=== PATIENT | male | born 1950 | race Two or more races ===

== ENCOUNTER 2016-08-10 03:58 | Emergency (ER) | payer MEDICARE ==
[~2016-08-10] VITALS: Ht 180.3 cm; Wt 161.0 kg
[~2016-08-10 03:58] MED LIST: DIABETIC MED; [UNRECOGNIZED DRUG - REMARK]; [UNRECOGNIZED DRUG - REMARK]
[2016-08-10 04:48] LABS: Basophils # (auto) 0.1 uL; Basophils % (auto) 1.1 % (0.0-2.0); Eosinophils # (auto) 0.2 uL; Eosinophils % (auto) 3.6 % (0.0-7.0); Hematocrit 44.4 % (41.0-53.0); Mean Corpuscular Hemoglobin 31.1 pg (28.0-32.0); Mean Corpuscular Hgb Conc. 33.8 g/dL (32.0-36.0); Mean Corpuscular Volume 92.1 fL (80.0-100.0); Mean Platelet Volume 9.1 fL (7.4-10.4); Monocytes # (auto) 0.7 uL; Monocytes % (auto) 12.2 % (0.0-12.0); Neutrophils # (auto) 2.6 uL; Neutrophils % (auto) 47.1 % (37.0-80.0); Platelet Count (auto) 264 10^3/uL (140-450); Red Cell Distribution Width 14.1 % (11.6-16.0); White Blood Cell 5.6 10^3/uL (4.4-10.8)
[2016-08-10 05:03] LABS: Albumin 3.6 g/dL (3.4-5.0); Anion Gap 9 (5-15); Aspartate Aminotransferase 16 U/L (15-37); BUN/Creatinine Ratio 14.7; Blood Urea Nitrogen 16 mg/dL (7-18); Calcium 8.3 mg/dL (8.5-10.1); Carbon Dioxide 24 mmol/L (21-32); Chloride 105 mmol/L (98-107); GFR African American 87 mL/min; GFR Non-African American 72 mL/min; Glucose 104 mg/dL (74-106); Magnesium 2.2 mg/dL (1.6-2.6); Potassium 4.2 mmol/L (3.5-5.1); Sodium 138 mmol/L (136-145)
[2016-08-10 05:04] LABS: INR 1.03 (0.9-1.15); Partial Thromboplastin Time 27.8 sec (22.64-33.71); Prothrombin Time 11.1 sec (9.37-12.3)
[2016-08-10 05:09] LABS: Alkaline Phosphatase 32 U/L (45-117); Bilirubin, Total 0.4 mg/dL (0.2-1.0); Total Protein 7.4 g/dL (6.4-8.2)
[2016-08-10 07:15] VITALS: BP 158/86
== END 2016-08-10 10:41 | disposition home or self-care (01) ==
LOC: ER 04:00
DX: M79.642 Pain in left hand (principal); F41.9 Anxiety disorder, unspecified; I10 Essential (primary) hypertension; R20.0 Anesthesia of skin
CPT/HCPCS: 36415; 70450; 80053; 83735; 84484; 85025; 85610; 85730; 93005

== ENCOUNTER 2023-07-26 10:17 | Emergency (ER) | payer OTHER ==
[~2023-07-26] VITALS: Ht 167.6 cm; Wt 145.9 kg
[~2023-07-26 10:17] MED LIST changes: +CLIN1CAP70 PO; +LEVO500T91 PO
[2023-07-26] MEDS: ADENOSINE 6 MG/2 ML INJ IV ONE ×4 (11:14→11:24)
[2023-07-26] MEDS: dilTIAZem 25 MG/5 ML VIAL IV ONE ×2 (11:15)
[2023-07-26] MEDS: MIDAZOLAM HCL 2MG/2ML 2ml VIAL (1mg/ml) IV ONE (11:15)
[2023-07-26 11:20] VITALS: PULSE 170; RESP 21; O2SAT 98
[2023-07-26] MEDS: SODIUM CHLORIDE 0.9% 1,000 ML IV ONE ×2 (11:24→14:15)
[2023-07-26] MEDS ORDERED: VANCOMYCIN PER PHARMACY 0 MG IV SCH (11:30)
[2023-07-26] MEDS: ONDANSETRON HCL 4 MG/2 ML VIAL IV ONE (11:30)
[2023-07-26] MEDS: amLODIPine BESYLATE 5 MG TAB PO ONE ×2 (11:45→12:32)
[2023-07-26 11:54] LABS: Hematocrit 52.2 % (41.0-53.0); Mean Corpuscular Hemoglobin 31.8 pg (28.0-32.0); Mean Corpuscular Hgb Conc. 32.5 g/dL (32.0-36.0); Mean Corpuscular Volume 97.7 fL (80.0-100.0); Red Blood Cells 5.34 10^6/uL (4.5-5.90); Red Cell Distribution Width 14.8 % (11.8-14.3); White Blood Cell 5.8 10^3/uL (4.4-10.8)
[2023-07-26 12:00] LABS: Base Excess -7.6 mmol/L (-2.0-2.0)
[2023-07-26 12:11] LABS: INR 1.12 (0.9-1.15); Partial Thromboplastin Time 33.6 SEC (24.5-34.5); Prothrombin Time 11.7 sec (9.3-11.8)
[2023-07-26 12:14] LABS: Band Neutrophils % (manual) 0; Basophils % (manual) 0 (0.0-2.0); Blast Cells 0; Metamyelocytes % 0; Myelocytes % 0; Promyelocytes % 0; Reactive Lymphocytes 0
[2023-07-26 12:32] LABS: Alanine Aminotransferase 13 U/L (7-40); Albumin 4.4 g/dL (3.2-4.8); Alkaline Phosphatase 78 U/L (46-116); Anion Gap 6 (5-15); Aspartate Aminotransferase 20 U/L (13-40); BUN/Creatinine Ratio 12.3 (10.0-20.0); Blood Urea Nitrogen 14 mg/dL (9-23); Calcium 9.1 mg/dL (8.7-10.4); Carbon Dioxide 20 mmol/L (20-30); Chloride 109 mmol/L (98-107); Creatine Kinase IFCC 69 U/L (46-171); Glucose 109 mg/dL (74-106); Potassium 4.8 mmol/L (3.5-5.1); Sodium 135 mmol/L (136-145)
[2023-07-26] MEDS: ALBUMIN 25% 100 ML IV ONE (12:32)
[2023-07-26] MEDS: ASPirin 81 mg TAB PO ONE (12:32)
[2023-07-26 12:33] LABS: Bilirubin, Total 0.5 mg/dL (0.2-1.0); Total Protein 7.8 g/dL (5.7-8.2)
[2023-07-26] MEDS: VANCOMYCIN 1GM/200ML 200 ML IV ONE (12:41)
[2023-07-26 13:29] LABS: Eosinophils % (manual) 1 (0-7); Lymphocytes % (manual) 16 (10.0-50.0); Monocytes % (manual) 28 (0-12); Platelet Estimate Adequate
[2023-07-26] MEDS ORDERED: HYDROcodone-ACET 5/325MG TAB PO PRN (14:15)
[2023-07-26] MEDS ORDERED: METOPROLOL TARTRATE 1MG/1ML-5ML VIAL IV PRN (14:15)
[2023-07-26] MEDS: CLINDAMYCIN HCL 150 MG CAP PO SCH (15:45)
[2023-07-26 17:10] VITALS: BP 127/64; PULSE 76; RESP 18; TEMP 97.7; O2SAT 98
[2023-07-26] MEDS ORDERED: VANCOMYCIN 1GM/200ML 200 ML IV SCH (21:00)
[2023-07-26] MEDS ORDERED: METOPROLOL TARTRATE 25 MG TAB PO SCH (22:00)
[2023-07-27] MEDS ORDERED: levoFLOXacin 500 MG TAB PO SCH (10:00)
== END 2023-07-26 17:00 | disposition short-term general hospital (02) ==
LOC: ER 10:17
DX: A41.9 Sepsis, unspecified organism (principal); I83.023 Varicose veins of left lower extremity with ulcer of ankle; L97.329 Non-pressure chronic ulcer of left ankle with unspecified severity; I47.10 Supraventricular tachycardia, unspecified; I95.9 Hypotension, unspecified; R60.0 Localized edema; I10 Essential (primary) hypertension; E11.9 Type 2 diabetes mellitus without complications
CPT/HCPCS: 36415; 71045; 80053; 80320; 82550; 83605; 83735; 83880; 84443; 84484; 85007; 85027; 85610; 85730; 87040; 87077; 87186; 87205; 93005; 93970; 96361; 96365; 96368; 96375; 99291; J0153; J3370; J7030; P9047

== ENCOUNTER 2025-02-08 02:39 | Inpatient (IN) | payer OTHER ==
[~2025-02-08] VITALS: Ht 180.3 cm; Wt 124.0 kg
[~2025-02-08 02:39] MED LIST changes: +FURO40TA4 PO; +POTA-180 PO; +SIMV20TA20 PO; +TAMS0.4C39 PO
--- NOTE | 2025-02-08 03:36 | ED.PDOC ---
History of Present Illness HPI Comments HPI: 74-year-old male who came to ER for body pains. Patient is a very poor informant. States he was apparently fine this morning until 7:00 p.m. when he developed generalized body pains. No fever noted. Initial Vitals BP:151/85 HR: 122 RR: 18 O2: 98% Temp: 98.6 Past Medical History: Hypertension, diabetes, dyslipidemia, SVTs Past Surgical History: Denies Social History: Denies ETOH, smoking, and drug use. MARY: HPI: Poor Historian. REVIEW OF SYSTEMS: CONSTITUTIONAL: Denies acute: fever, diaphoresis, chills, HEAD: Denies acute: headache, photophobia Eyes: Denies acute: Double vision, vision loss, eye pain, eye discharge. EARS: Denies acute: tinnitus, hearing loss, ear discharge, ear pain, THROAT: Denies acute: sore throat, swelling, difficulty swallowing , pain with swallowing, change in voice. NECK: Denies acute: neck pain, neck swelling, stiff neck. HEART: Denies acute : chest pain, palpitations, LUNGS: Denies acute: SOB, wheezing, cough, hemoptysis ABDOMEN: Denies acute: Nausea, Vomiting, diarrhea, melena , hematemesis, hematochezia SKIN: Denies acute: rash, redness, lesions, itchiness. EXTREMITIES: Denies acute: calf pain, numbness, tingling, weakness, Denies acute: Low back pain. Neuro: Denies acute: focal neurological deficit, motor or sensory focal neurological deficit, tremors, seizure like activity, confusion, dizziness, change in mental status, loss of bowel or bladder function, cauda equina like symptoms. : Denies acute: dysuria, hematuria, flank pain, increase in urinary frequency. PSYCH: Denies acute: hallucination, suicidal ideation, homicidal ideation. PHYSICAL EXAM: General: -----moderate---acute distress, awake and alert. Patient is diffusely tender anywhere I touch him. Head: normocephalic, atraumatic. Neck: supple, trachea is midline, no swelling. Throat: Normal phonation. Eyes:, no erythema, no purulent discharge, no proptosis, no icterus. Heart: regular tachycardic, no significant murmur appreciated. Lungs: no apparent respiratory distress, Able to speak in full sentences. No wheezing, no rhonchi, no crackles. No stridors Clear to auscultation bilaterally. Abdomen: Generalized tender to palpation, non distended, soft, no guarding, no rebound, + bowel sounds. Obese Neuro: Awake, Alert, oriented to name, self, situation, follows commands GCS=15. Speech is normal. Skin: no petechia, no purpura, no cyanosis, non-pale, not jaundice. Lower extremities: --2/4 bilateral- Pitting edema no deformity, no focal swelling, no calf TTP. Makes eye contact. moves all four extremities. Face: no apparent facial droop. Ambulating in the ED with a cane. No nuchal rigidity, Kernig's sign, Brudzinski's sign, no meningeal signs. ED COURSE: DISCLAIMER: This medical document was created using an electronic medical record system with voice recognition software and computerized dictation system. Although this document has been carefully reviewed, there might still be some phonetic and typographical errors. Occasional wrong-word or "sound-alike" substitutions may have occurred due to the inherent limitations of voice recognition software. These areas are purely typographical due to imperfections of the software programs and do not reflect any compromise in the patient's medical care. Please read the chart carefully and recognize, using context, where these substitutions have occurred. Chief Complaint: Body Pain Time Seen by MD: 03:35 Primary Care Provider: YSABEL CERON NAME Reviewed Notes: Nurses Notes Allergies: Coded Allergies: NO KNOWN ALLERGIES (Unverified , 10/23/11) Home Meds Active Scripts Clindamycin Hcl (Clindamycin Hcl) 300 Mg Cap, 1 CAP PO TID for 10 Days, #30 CAP Prov:KEYUR KOWALSKI MD 07/23/23 Levofloxacin Hemihydrate (LEVAQUIN 500 MG) 500 Mg Tab, 1 TAB PO DAILY for 10 Days, #10 TAB Prov:KEYUR KOWALSKI MD 07/23/23 Reported Medications [Diabetic Med] No Conflict Check 10/23/11 [Heidi Cholosterol] No Conflict Check 10/23/11 [Htn X 2] No Conflict Check 10/23/11 Information Source: Patient Mode of Arrival: Ambulatory Past Medical History PAST MEDICAL HISTORY: DM, High Lipids, HTN Past Medical History (Other): SVTs Surgical History: Denies all surgeries Family History Family History: Unknown Social History Smoker: Non-Smoker Alcohol: Denies ETOH Use Drugs: Denies Drug Use Lives In: Home Was a procedure done? Was a procedure done?: No EKG EKG : Pulse Rate (adult): 103 Cardiac Rhythm: ST Differential Dx Considerations may include: Anemia, electrolyte imbalance, urinary tract infection, cellulitis, sepsis, pneumonia Includes but not limited to thyroid disease, encephalopathy, electrolyte abnormality, sepsis, infection, intracranial pathology, drug adverse effects, arrhythmia, kidney insufficiency, ACS, CVA, malignancy, anemia X-Ray, Labs, Meds, VS Vital Signs Date Time Temp Pulse Resp B/P (MAP) Pulse Ox O2 Delivery O2 Flow Rate FiO2 02/08/25 03:36 103 02/08/25 02:43 98.6 122 18 151/85 98 98.6 Lab Test 02/08/25 05:13 02/08/25 03:44 02/08/25 03:21 Range/Units Troponin I High Sensitivity 16 12 </=54 ng/L Lactic Acid Level 2.0 0.4-2.0 mmol/L White Blood Count 11.7 H 4.4-10.8 10^3/uL Red Blood Count 5.09 4.5-5.90 10^6/uL Hemoglobin 16.0 13.5-17.5 g/dL Hematocrit 47.0 41.0-53.0 % Mean Corpuscular Volume 92.3 80.0-100.0 fL Mean Corpuscular Hemoglobin 31.4 28.0-32.0 pg Mean Corpuscular Hemoglobin Concent 34.1 32.0-36.0 g/dL Red Cell Distribution Width 15.4 H 11.8-14.3 % Platelet Count 188 140-450 10^3/uL Mean Platelet Volume 8.6 6.9-10.8 fL Neutrophils (%) (Auto) 87.2 H 37.0-80.0 % Lymphocytes (%) (Auto) 3.5 L 10.0-50.0 % Monocytes (%) (Auto) 8.6 0.0-12.0 % Eosinophils (%) (Auto) 0.1 0.0-7.0 % Basophils (%) (Auto) 0.6 0.0-2.0 % Neutrophils # (Auto) 10.2 H 1.6-8.6 10 ^3/uL Lymphocytes # (Auto) 0.4 0.4-5.4 10 ^3/uL Monocytes # (Auto) 1.0 0-1.3 10 ^3/uL Eosinophils # (Auto) 0 0-0.8 10 ^3/uL Basophils # (Auto) 0.1 0-0.2 10 ^3/uL Nucleated Red Blood Cells 0.0 % Erythrocyte Sedimentation Rate 14 0-20 mm/hr Sodium Level 138 136-145 mmol/L Potassium Level 4.5 3.5-5.1 mmol/L Chloride Level 103 98-107 mmol/L Carbon Dioxide Level 23 20-31 mmol/L Anion Gap 12 5-15 Blood Urea Nitrogen 13 9-23 mg/dL Creatinine 1.05 0.700-1.30 mg/dL Glomerular Filtration Rate Calc 74 >90 mL/min BUN/Creatinine Ratio 12.4 10.0-20.0 Serum Glucose 141 H 74-106 mg/dL Calcium Level 9.8 8.7-10.4 mg/dL Magnesium Level 1.8 1.6-2.6 mg/dL Total Bilirubin 1.7 H 0.2-1.0 mg/dL Aspartate Amino Transferase (AST) 28 13-40 U/L Alanine Aminotransferase (ALT) 20 7-40 U/L Alkaline Phosphatase 107 46-116 U/L C-Reactive Protein High Sensitivity 0.46 <1.0 mg/dL B-Type Natriuretic Peptide 385.93 0-100 pg/mL Total Protein 7.9 5.7-8.2 g/dL Albumin 4.4 3.2-4.8 g/dL Time of 1ST Reevaluation: 03:31 Reevaluation 1ST: Unchanged Patient Education/Counseling: Diagnosis, Treatment Family Education/Counseling: No Family Present Comments MDM: patient presented with the above HPI.--generalized body aches and altered mental status----workup was initiated. patient was found with the above mentioned diagnosis. the following medications were ordered: please refer to order lists of meds and tests obtained by myself Dr. Hawkins. Patient ED course and VS have been stabilized. Patient has been reassessed in the ED and remained in a stable condition. Pertinent incidental findings were discussed with the patient and/or family. Patient/family voices understanding and is agreeable with plan. Patient has been observed in the ED adequate length of time to insure improvement/stability. Escalation of care considered: Consideration of escalation to observation or admission Patient has chronic bilateral lower extremity cellulitis with tenderness to palpation worse on the left side. Antibiotics initiated. Patient is awaiting some type of procedure to repair his ulcers. Patient states that he is somewhat confused because he is in generalized body aches and pain that started earlier today with a unknown etiology. Although the workup is so far unrevealing, patient clinically looks like something concerning is going on. Patient was ADMITTED to the medicine team for further evaluation and treatment of their presentation. All the reports of any imaging studies that were ordered by myself were reviewed by myself. SEPSIS Sepsis Screen Date sepsis recognized/suspect: Feb 08, 2025 Time Sepsis recognized/suspect: 024 Recent Procedure: No On Antibiotic Therapy: No Respiratory Rate >20: No Heart Rate >90: Yes Temp<36 C (96.8 F) or >38.3 C: No SBP <90 or MAP <65 mmHG: No New Acute Mental Status Change: No Is the patient on CPAP, BIPAP,: No Physician Orders Production Team Member (02/08/25 ) Urinalysis (02/08/25 03:13) Troponin-I Hs (02/08/25 06:13) Blood Culture (02/08/25 04:08) Chest Portable (02/08/25 05:23) Clindamycin 900mg Iv (Cleocin Iv) (02/08/25 05:45) Vital Signs Date Time Temp Pulse Resp B/P (MAP) Pulse Ox O2 Delivery O2 Flow Rate FiO2 02/08/25 03:36 103 02/08/25 02:43 98.6 122 18 151/85 98 98.6 Laboratory Tests Test 02/08/25 03:21 02/08/25 03:44 White Blood Count 11.7 10^3/uL (4.4-10.8) H Lactic Acid Level 2.0 mmol/L (0.4-2.0) Departure 1 Departure Time of Disposition: 06:47 Impression: Primary Impression: Altered mental status Additional Impressions: Cellulitis, leg Generalized body aches Disposition: ADMITTED INPATIENT Admit to: [facility] Condition: Guarded Discharged With: Self Critical Care Note Critical Care Time?: Yes (35 min-critical care time only) I personally scribed for JOEY HAWKINS DO ([email or web address]) on 02/08/25 at 03:36. Electronically submitted by Ari Dean ([facility]). JOEY HAWKINS DO Feb 08, 2025 03:36
[2025-02-08 03:55] LABS: Hematocrit 47.0 % (41.0-53.0); Hemoglobin 16.0 g/dL (13.5-17.5); Mean Corpuscular Hemoglobin 31.4 pg (28.0-32.0); Mean Corpuscular Volume 92.3 fL (80.0-100.0); Nucleated Red Blood Cells % 0.0 %
[2025-02-08 04:07] LABS: Alanine Aminotransferase 20 U/L (7-40); Albumin 4.4 g/dL (3.2-4.8); Alkaline Phosphatase 107 U/L (46-116); Anion Gap 12 (5-15); BUN/Creatinine Ratio 12.4 (10.0-20.0); Blood Urea Nitrogen 13 mg/dL (9-23); Calcium 9.8 mg/dL (8.7-10.4); Carbon Dioxide 23 mmol/L (20-31); Chloride 103 mmol/L (98-107); Magnesium 1.8 mg/dL (1.6-2.6); Potassium 4.5 mmol/L (3.5-5.1); Sodium 138 mmol/L (136-145); Total Protein 7.9 g/dL (5.7-8.2)
[2025-02-08 04:25] LABS: Bilirubin, Total 1.7 mg/dL (0.2-1.0); Glucose 141 mg/dL (74-106)
--- NOTE | 2025-02-08 06:54 | DVH ---
CHEST RADIOGRAPH Indication: body pain Technique: Single frontal view of the chest was obtained COMPARISON: XY CHEST PORTABLE on DOS: 07/26/23 FINDINGS: Lines and Tubes: None Lungs: Moderate diffuse increased prominence of the pulmonary vasculature and mild bibasilar pulmonar y airspace disease. Pleura: No effusion. No pneumothorax. Cardiomediastinal contours: A megaly. Bones: Unremarkable IMPRESSION: 1. Cardiomegaly with mild pulmonary vascular congestion and mild bibasilar pulmonary airspace disease .
[2025-02-08] MEDS: CLINDAMYCIN 900MG IV 50 ML IV ONE (07:46)
[2025-02-08] MEDS: PIPERACILLIN-TAZOB 3.375GM 100 ML IV ONE (07:46)
[2025-02-08 08:06] VITALS: PULSE 84; RESP 16; O2SAT 95
[2025-02-08 08:18] LABS: Urine Protein, UAD TRACE (Negative)
[2025-02-08 12:00] VITALS: PULSE 100; RESP 29; O2SAT 88
[2025-02-08] MEDS: FUROSEMIDE 40 MG/4 ML VIAL IV ONE (13:44)
[2025-02-08] MEDS ORDERED: NITROGLYCERIN 0.4 MG SL TAB SL PRN (16:15)
[2025-02-08] MEDS ORDERED: HYDROcodone-ACET 5/325MG TAB PO PRN (16:15)
[2025-02-08] MEDS ORDERED: ONDANSETRON HCL 4 MG/2 ML VIAL IV PRN (16:15)
[2025-02-08] MEDS ORDERED: MORPHINE SULFATE INJ 2 MG/ml SYRG IV PRN (16:15)
[2025-02-08] MEDS ORDERED: METO25TA93 PO (16:25)
[2025-02-08] MEDS ORDERED: MET25T PO (16:26)
--- NOTE | 2025-02-08 16:32 | DVHHP2 ---
History of Present Illness Reason for Visit: Body pains History of Present Illness Raymundo Akers is a 74-year-old male with past medical history of hypertension, diabetes, dyslipidemia, and SVTs who presents to the ED with chest pain that started yesterday, reports pain is 9/10 "hurts" and is intermittent in nature. She reports that there are no triggering or alleviating factors. Patient reports that he does not use oxygen at home. Patient denies any recent trauma or injury, recent sick contacts, recent ingestion of spoiled food, recent travels, shortness of breath, fever, chills, lightheadedness, weakness, dizziness, abdominal pain, nausea, vomiting, diarrhea, or urinary symptoms. Upon examination food technologist at bedside and patient appears to have soiled himself. Cardiovascular: HTN, hyperipidemia Endocrine: Diabetes Past Medical History SVTs Past Surgical History: None Family History: None Smoke: No ALCOHOL: none Drugs: None Lives: with Family Domestic Violence: Neg Review of Systems Cardiovascular: Chest Pain Allergies: Coded Allergies: NO KNOWN ALLERGIES (Unverified , 10/23/11) Exam Vital Signs Vital Signs Date Time Temp Pulse Resp B/P (MAP) Pulse Ox O2 Delivery O2 Flow Rate FiO2 02/08/25 14:00 103 28 124/87 (99) 97 02/08/25 12:00 98.5 98.5 02/08/25 12:00 Room Air* 0 21 General Appearance: Alert, Oriented X3, Cooperative, No acute distress HEENT: Atraumatic, PERRLA, EOMI, Mucous membr. moist/pink Respiratory: Normal air movement Cardiovascular: Normal S1, Normal S2 Abdominal: Normal bowel sounds, Soft Neuro: Normal speech, Normal tone, Sensation intact Psych/Mental Status: Mental status NL Labs/Xrays Labs Test 02/08/25 07:37 02/08/25 07:26 02/08/25 03:44 02/08/25 03:21 Range/Units Urine Color Yellow Yellow Urine Clarity Clear Clear Urine pH 5.5 5.0-9.0 Urine Specific [place] 1.026 1.001-1.035 Urine Protein Trace H Negative Urine Ketones Negative Negative Urine Blood 1+ H Negative /uL Urine Nitrite Negative Negative Urine Bilirubin Negative Negative Urine Urobilinogen Normal Negative mg/dL Urine Leukocyte Esterase Negative Negative /uL Urine RBC 1 0 - 3 /hpf Urine Microscopic WBC < 1 0-3 /HPF Urine Squamous Epithelial Cells Few <5 /hpf Urine Bacteria None seen None Seen /hpf Urine Mucus Few None Seen Urine Glucose Normal Normal mg/dL Troponin I High Sensitivity 16 </=54 ng/L Lactic Acid Level 2.0 0.4-2.0 mmol/L White Blood Count 11.7 H 4.4-10.8 10^3/uL Red Blood Count 5.09 4.5-5.90 10^6/uL Hemoglobin 16.0 13.5-17.5 g/dL Hematocrit 47.0 41.0-53.0 % Mean Corpuscular Volume 92.3 80.0-100.0 fL Mean Corpuscular Hemoglobin 31.4 28.0-32.0 pg Mean Corpuscular Hemoglobin Concent 34.1 32.0-36.0 g/dL Red Cell Distribution Width 15.4 H 11.8-14.3 % Platelet Count 188 140-450 10^3/uL Mean Platelet Volume 8.6 6.9-10.8 fL Neutrophils (%) (Auto) 87.2 H 37.0-80.0 % Lymphocytes (%) (Auto) 3.5 L 10.0-50.0 % Monocytes (%) (Auto) 8.6 0.0-12.0 % Eosinophils (%) (Auto) 0.1 0.0-7.0 % Basophils (%) (Auto) 0.6 0.0-2.0 % Neutrophils # (Auto) 10.2 H 1.6-8.6 10 ^3/uL Lymphocytes # (Auto) 0.4 0.4-5.4 10 ^3/uL Monocytes # (Auto) 1.0 0-1.3 10 ^3/uL Eosinophils # (Auto) 0 0-0.8 10 ^3/uL Basophils # (Auto) 0.1 0-0.2 10 ^3/uL Nucleated Red Blood Cells 0.0 % Erythrocyte Sedimentation Rate 14 0-20 mm/hr Sodium Level 138 136-145 mmol/L Potassium Level 4.5 3.5-5.1 mmol/L Chloride Level 103 98-107 mmol/L Carbon Dioxide Level 23 20-31 mmol/L Anion Gap 12 5-15 Blood Urea Nitrogen 13 9-23 mg/dL Creatinine 1.05 0.700-1.30 mg/dL Glomerular Filtration Rate Calc 74 >90 mL/min BUN/Creatinine Ratio 12.4 10.0-20.0 Serum Glucose 141 H 74-106 mg/dL Calcium Level 9.8 8.7-10.4 mg/dL Magnesium Level 1.8 1.6-2.6 mg/dL Total Bilirubin 1.7 H 0.2-1.0 mg/dL Aspartate Amino Transferase (AST) 28 13-40 U/L Alanine Aminotransferase (ALT) 20 7-40 U/L Alkaline Phosphatase 107 46-116 U/L C-Reactive Protein High Sensitivity 0.46 <1.0 mg/dL B-Type Natriuretic Peptide 385.93 0-100 pg/mL Total Protein 7.9 5.7-8.2 g/dL Albumin 4.4 3.2-4.8 g/dL CHEST RADIOGRAPH Indication: body pain Technique: Single frontal view of the chest was obtained COMPARISON: XY CHEST PORTABLE on DOS: 07/26/23 FINDINGS: Lines and Tubes: None Lungs: Moderate diffuse increased prominence of the pulmonary vasculature and mild bibasilar pulmonary airspace disease. Pleura: No effusion. No pneumothorax. Cardiomediastinal contours: A megaly. Bones: Unremarkable IMPRESSION: 1. Cardiomegaly with mild pulmonary vascular congestion and mild bibasilar pulmonary airspace disease. SEPSIS Sepsis Screen Date sepsis recognized/suspect: Feb 08, 2025 Time Sepsis recognized/suspect: 1200 Recent Procedure: No On Antibiotic Therapy: No Respiratory Rate >20: No Heart Rate >90: No Temp<36 C (96.8 F) or >38.3 C: No SBP <90 or MAP <65 mmHG: No New Acute Mental Status Change: No Is the patient on CPAP, BIPAP,: No Vital Signs Date Time Temp Pulse Resp B/P (MAP) Pulse Ox O2 Delivery O2 Flow Rate FiO2 02/08/25 14:00 103 28 124/87 (99) 97 02/08/25 13:44 131/82 02/08/25 12:00 98.5 100 29 119/75 (90) 88 98.5 02/08/25 12:00 100 29 88 Room Air* 0 21 Medications Medications Dose Ordered Sig/Brielle Route Start Time Stop Time Status Last Admin Dose Admin Clindamycin Phosphate 50 ml @ 50 mls/hr ONCE ONCE IV 02/08/25 05:45 02/08/25 06:44 DC 02/08/25 07:46 50 MLS/HR Furosemide 40 mg ONCE ONCE IV 02/08/25 07:00 02/08/25 07:01 DC 02/08/25 13:44 40 MG Piperacillin Sod/ Tazobactam Sod 100 ml @ 100 mls/hr ONCE ONCE IV 02/08/25 07:00 02/08/25 07:59 DC 02/08/25 07:46 100 MLS/HR Assessment/Plan Assessment/Plan Assessment Chest pain Acute hypoxic respiratory failure on supplemental oxygen ? Acute systolic versus diastolic heart failure Bilateral lower extremity wounds Leukocytosis unclear etiology Hyperbilirubinemia History of hypertension History of diabetes History of dyslipidemia History of SVTs Plan Admit to tele ACS workup Trend T bili Antiemetics Pain management Diurese Supplemental oxygen IV antibiotics-ceftriaxone Bilateral lower extremity venous ultrasound Wound consult Hemoglobin A1c ISS and Accu-Cheks Echo ordered UDS Chest x-ray Blood cultures Lactic noted BNP ESR CRP Diet Home medications reconciled DVT prophylaxis-Lovenox PUD prophylaxis-PPIs Discussed plan of care with patient and nurse [id number] Preventive counseling healthy eating habits, physical activity, and regular checkups Plan discussed with: Patient Date of Service: Feb 08, 2025 Billing Provider: JOHNATHAN LUNDBERG Common Visit Codes: [id number] INP/OBS CARE (HIGH) Secondary Visit Codes: [id number] COUNSELING IND JOHNATHAN LUNDBERG Feb 08, 2025 16:32
[2025-02-08] MEDS: ENOXAPARIN SOD 40 MG/0.4 ML SYRINGE SC SCH (16:52)
[2025-02-08] MEDS: FUROSEMIDE 40 MG/4 ML VIAL IV SCH (16:58)
--- NOTE | 2025-02-08 17:19 | DVH ---
Bilateral lower extremity venous duplex Clinical History: r/o dvt Comparison: US BILAT LOWER DVT on DOS: 07/26/23, US LT LOWER DVT on DOS: 07/23/23 Technique: Duplex Doppler evaluation of the deep venous systems of both lower extremities from the common femora l veins to the popliteal veins including color Doppler and spectral/pulsed waveform analysis was perf ormed. Findings: RIGHT SIDE: The common femoral vein demonstrates appropriate compressibility and waveform variability. There is compressibility/patency of the great saphenous vein at the proximal thigh. The femoral vein demonstrates appropriate compressibility and waveform variability. The deep femoral vein demonstrates appropriate compressibility and waveform variability. The popliteal vein demonstrates appropriate compressibility and waveform variability. There is normal compressibility at the tibioperoneal trunk. LEFT SIDE: The common femoral vein demonstrates appropriate compressibility and waveform variability. There is compressibility/patency of the great saphenous vein at the proximal thigh. The femoral vein demonstrates appropriate compressibility and waveform variability. The deep femoral vein demonstrates appropriate compressibility and waveform variability. The popliteal vein demonstrates appropriate compressibility and waveform variability. There is normal compressibility at the tibioperoneal trunk. Impression: No right or left femoropopliteal venous thrombosis.
[2025-02-08 17:50] LABS: Magnesium 1.8 mg/dL (1.6-2.6); Triglycerides 64.0 mg/dL (< 150)
[2025-02-08 17:52] LABS: Cholesterol 112.0 mg/dL (< 200)
[2025-02-08 18:02] LABS: Amphetamine Screen, Urine Neg (NEGATIVE); Barbiturate Scree,Urine Neg (NEGATIVE); Benzodiazephine Screen, Urine Neg (NEGATIVE); Cannabinoid Screen, Urine Neg (NEGATIVE); Cocaine Screen, Urine Neg (NEGATIVE); Opiate Scree,Urine Neg (NEGATIVE); Phencyclidine Screen, Urine Neg (NEGATIVE)
[2025-02-08 18:03] LABS: HDL Cholesterol 37.0 mg/dL (40-59)
[2025-02-08 18:14] VITALS: PULSE 116; RESP 18; O2SAT 96
[2025-02-08] MEDS: TAMSULOSIN HYDROCHLORIDE 0.4 MG CAP PO SCH (19:00)
[2025-02-08 20:00] VITALS: PULSE 109
[2025-02-08 21:00] VITALS: BP 113/74; PULSE 117; RESP 19; TEMP 97.3; O2SAT 90
[2025-02-08] MEDS: ATORVASTATIN 20 MG TAB PO SCH (21:13)
[2025-02-09] VITALS (8 sets, daily range): BP systolic 111–135; BP diastolic 78–87; PULSE 100–124; RESP 16–20; TEMP 97.9–100.5; O2SAT 90–99
[2025-02-09 07:43] LABS: Hematocrit 48.7 % (41.0-53.0); Hemoglobin 16.4 g/dL (13.5-17.5); Mean Corpuscular Hemoglobin 31.0 pg (28.0-32.0); Mean Corpuscular Volume 92.0 fL (80.0-100.0); Nucleated Red Blood Cells % 0.1 %
[2025-02-09 08:03] LABS: Alanine Aminotransferase 14 U/L (7-40); Albumin 4.4 g/dL (3.2-4.8); Alkaline Phosphatase 102 U/L (46-116); Anion Gap 14 (5-15); BUN/Creatinine Ratio 18.6 (10.0-20.0); Blood Urea Nitrogen 18 mg/dL (9-23); Calcium 9.5 mg/dL (8.7-10.4); Carbon Dioxide 22 mmol/L (20-31); Chloride 100 mmol/L (98-107); Sodium 136 mmol/L (136-145); Total Protein 7.7 g/dL (5.7-8.2)
[2025-02-09 08:05] LABS: Bilirubin, Total 2.6 mg/dL (0.2-1.0); Glucose 140 mg/dL (74-106); Potassium 3.5 mmol/L (3.5-5.1)
[2025-02-09] MEDS: METOPROLOL SUCCINATE XL 50 MG TAB PO SCH (09:59)
[2025-02-09] MEDS: ACETAMINOPHEN 325 MG TAB PO PRN (10:19)
--- NOTE | 2025-02-09 14:59 | DVHPN2 ---
Subjective The patient seen and examined at bedside. No complains Reviewed: Care Plan, H&P, Labs, Medications, Previous Orders, Radiology Changes from previous H/P or p: No Changes Cardiovascular: Chest Pain Objective Vitals Vital Signs Date Time Temp Pulse Resp B/P (MAP) Pulse Ox O2 Delivery O2 Flow Rate FiO2 02/09/25 09:59 114 135/82 02/09/25 09:00 97.9 16 91 97.9 02/08/25 20:00 Nasal Cannula* 3 32 Intake/Output Intake and Output 02/09/25 07:00 Intake Total 450 ml Output Total 450 ml Balance 0 ml Intake Oral 400 ml IV Total 50 ml Output Urine Total 450 ml General Appearance: Alert, Oriented X3, Cooperative, No acute distress HEENT: Atraumatic, PERRLA, EOMI, Mucous membr. moist/pink Neck: Supple Lungs: Clear to auscultation, Normal air movement Cardiovascular: Regular rate, Normal S1, Normal S2, No murmurs, Gallops, Rubs Abdomen: Normal bowel sounds, Soft, No tenderness Neuro: Cranial nerves 3-12 NL Psych/Mental Status: Mental status NL Medications Current Medications Medications Dose Ordered Sig/Brielle Route Start Time Stop Time Status Last Admin Dose Admin Enoxaparin Sodium 40 mg DAILY SC 02/08/25 16:15 02/09/25 09:59 40 MG Furosemide 40 mg DAILY IV 02/08/25 16:15 02/09/25 09:58 40 MG Ceftriaxone Sodium 50 ml @ 100 mls/hr DAILY@09 IV 02/08/25 16:15 02/09/25 09:58 100 MLS/HR Acetaminophen/ Hydrocodone Bitart 1 tab Q4HP PRN PO 02/08/25 16:15 Ondansetron HCl 4 mg Q4HP PRN IV 02/08/25 16:15 Acetaminophen 650 mg Q6HP PRN PO 02/08/25 16:15 02/09/25 10:19 650 MG Nitroglycerin 0.4 mg Q5MINP PRN SL 02/08/25 16:15 Morphine Sulfate 2 mg Q30M PRN IV 02/08/25 16:15 Tamsulosin HCl 0.4 mg QPM PO 02/08/25 18:00 02/08/25 19:00 0.4 MG Metoprolol Succinate 25 mg DAILY PO 02/09/25 10:00 02/09/25 09:59 25 MG Atorvastatin Calcium 20 mg HS PO 02/08/25 22:00 02/08/25 21:13 20 MG Laboratory Results Laboratory Tests 02/09/25 06:26 Chemistry Test 02/09/25 06:26 Albumin 4.4 g/dL (3.2-4.8) Calcium Level 9.5 mg/dL (8.7-10.4) Total Protein 7.7 g/dL (5.7-8.2) LFT Test 02/09/25 06:26 Alanine Aminotransferase (ALT) 14 U/L (7-40) Alkaline Phosphatase 102 U/L (46-116) Aspartate Amino Transferase (AST) 22 U/L (13-40) Total Bilirubin 2.6 mg/dL (0.2-1.0) H Urinalysis Test 02/08/25 07:37 Urine Color Yellow (Yellow) Urine Clarity Clear (Clear) Urine pH 5.5 (5.0-9.0) Urine Specific [place] 1.026 (1.001-1.035) Urine Protein Trace (Negative) H Urine Ketones Negative (Negative) Urine Blood 1+ /uL (Negative) H Urine Nitrite Negative (Negative) Urine Bilirubin Negative (Negative) Urine Urobilinogen Normal mg/dL (Negative) Urine Leukocyte Esterase Negative /uL (Negative) Urine RBC 1 /hpf (0 - 3) Urine Microscopic WBC < 1 /HPF (0-3) Urine Squamous Epithelial Cells Few /hpf (<5) Urine Bacteria None seen /hpf (None Seen) Urine Mucus Few (None Seen) Urine Glucose Normal mg/dL (Normal) Microbiology Microbiology Date/Time Source Procedure Growth Status 02/08/25 07:37 Voided Urine Urine Culture - Preliminary Resulted 02/08/25 03:51 Blood Blood Culture - Preliminary NO GROWTH AFTER 24 HOURS OF INCUBATION. Resulted Labs and/or images reviewed: Labs reviewed by me Assessment/Plan Assessment/Plan Chest pain Acute hypoxic respiratory failure on supplemental oxygen ? Acute systolic versus diastolic heart failure Bilateral lower extremity wounds Leukocytosis unclear etiology Hyperbilirubinemia History of hypertension History of diabetes History of dyslipidemia History of SVTs Plan Continue current management. Still have chest pain so I will consult cardiology Will follow t bili Continue SSI Acue check Wound care Continue IV Rocephin Lasix IV Plan discussed with: Patient Date of Service: Feb 09, 2025 Billing Provider: DESTINEY TORRES MD Common Visit Codes: [id number] INP/OBS CARE(HIGH) DESTINEY TORRES MD Feb 09, 2025 14:59
[2025-02-10] VITALS (7 sets, daily range): BP systolic 115–154; BP diastolic 74–93; PULSE 89–113; RESP 16–22; TEMP 96.4–99.2; O2SAT 90–97
--- NOTE | 2025-02-10 13:16 | DVHPN2 ---
Subjective The patient seen and examined at bedside. No complains Reviewed: Care Plan, H&P, Labs, Medications, Previous Orders, Radiology Changes from previous H/P or p: No Changes Cardiovascular: Chest Pain Objective Vitals Vital Signs Date Time Temp Pulse Resp B/P (MAP) Pulse Ox O2 Delivery O2 Flow Rate FiO2 02/10/25 12:35 97.1 94 20 115/93 (100) 95 97.1 02/10/25 08:00 Nasal Cannula* 3 32 Intake/Output Intake and Output 02/10/25 07:00 Intake Total 800 ml Output Total 200 ml Balance 600 ml Intake Oral 750 ml IV Total 50 ml Output Urine Total 200 ml # Voids 10 General Appearance: Alert, Oriented X3, Cooperative, No acute distress HEENT: Atraumatic, PERRLA, EOMI, Mucous membr. moist/pink Neck: Supple Lungs: Clear to auscultation, Normal air movement Cardiovascular: Regular rate, Normal S1, Normal S2, No murmurs, Gallops, Rubs Abdomen: Normal bowel sounds, Soft, No tenderness Neuro: Cranial nerves 3-12 NL Psych/Mental Status: Mental status NL Medications Current Medications Medications Dose Ordered Sig/Brielle Route Start Time Stop Time Status Last Admin Dose Admin Enoxaparin Sodium 40 mg DAILY SC 02/08/25 16:15 02/10/25 09:32 40 MG Furosemide 40 mg DAILY IV 02/08/25 16:15 02/10/25 09:34 40 MG Ceftriaxone Sodium 50 ml @ 100 mls/hr DAILY@09 IV 02/08/25 16:15 02/10/25 09:33 100 MLS/HR Acetaminophen/ Hydrocodone Bitart 1 tab Q4HP PRN PO 02/08/25 16:15 Ondansetron HCl 4 mg Q4HP PRN IV 02/08/25 16:15 Acetaminophen 650 mg Q6HP PRN PO 02/08/25 16:15 02/09/25 20:34 650 MG Nitroglycerin 0.4 mg Q5MINP PRN SL 02/08/25 16:15 Morphine Sulfate 2 mg Q30M PRN IV 02/08/25 16:15 Tamsulosin HCl 0.4 mg QPM PO 02/08/25 18:00 02/09/25 18:12 0.4 MG Metoprolol Succinate 25 mg DAILY PO 02/09/25 10:00 02/10/25 09:34 25 MG Atorvastatin Calcium 20 mg HS PO 02/08/25 22:00 02/09/25 22:00 20 MG Laboratory Results Laboratory Tests 02/09/25 06:26 Urinalysis Test 02/08/25 07:37 Urine Color Yellow (Yellow) Urine Clarity Clear (Clear) Urine pH 5.5 (5.0-9.0) Urine Specific [place] 1.026 (1.001-1.035) Urine Protein Trace (Negative) H Urine Ketones Negative (Negative) Urine Blood 1+ /uL (Negative) H Urine Nitrite Negative (Negative) Urine Bilirubin Negative (Negative) Urine Urobilinogen Normal mg/dL (Negative) Urine Leukocyte Esterase Negative /uL (Negative) Urine RBC 1 /hpf (0 - 3) Urine Microscopic WBC < 1 /HPF (0-3) Urine Squamous Epithelial Cells Few /hpf (<5) Urine Bacteria None seen /hpf (None Seen) Urine Mucus Few (None Seen) Urine Glucose Normal mg/dL (Normal) Microbiology Microbiology Date/Time Source Procedure Growth Status 02/08/25 07:37 Voided Urine Urine Culture - Final Complete 02/08/25 03:51 Blood Blood Culture - Preliminary NO GROWTH AFTER 48 HOURS OF INCUBATION. Resulted Labs and/or images reviewed: Labs reviewed by me Assessment/Plan Assessment/Plan Chest pain Acute hypoxic respiratory failure on supplemental oxygen ? Acute systolic versus diastolic heart failure Bilateral lower extremity wounds Leukocytosis unclear etiology Hyperbilirubinemia History of hypertension History of diabetes History of dyslipidemia History of SVTs Plan Continue current management. Still have chest pain so I will consult cardiology t bili continue elevated. Will order MRCP Continue SSI Acue check Wound care Continue IV Rocephin Lasix IV Plan discussed with: Patient My Orders Orders - DESTINEY TORRES MD Procedure Category Date Status Time Hepatic Panel LAB 02/10/25 Transmitted 13:14 Date of Service: Feb 10, 2025 Billing Provider: DESTINEY TORRES MD Common Visit Codes: [id number] INP/OBS CARE(HIGH) DESTINEY TORRES MD Feb 10, 2025 13:16
[2025-02-10 15:47] LABS: Alanine Aminotransferase 14.0 U/L (7-40); Albumin 4.3 g/dL (3.2-4.8); Alkaline Phosphatase 92.0 U/L (46-116); Total Protein 7.7 g/dL (5.7-8.2)
[2025-02-10 15:52] LABS: Bilirubin, Direct 1.2 mg/dL (<0.3); Bilirubin, Total 2.7 mg/dL (0.2-1.0)
[2025-02-11] VITALS (7 sets, daily range): BP systolic 114–132; BP diastolic 85–94; PULSE 100–127; RESP 16–19; TEMP 98.2–98.8; O2SAT 93–95
--- NOTE | 2025-02-11 11:08 | DVHPN2 ---
Subjective The patient seen and examined at bedside. No complains Reviewed: Care Plan, H&P, Labs, Medications, Previous Orders, Radiology Changes from previous H/P or p: No Changes Cardiovascular: Chest Pain Objective Vitals Vital Signs Date Time Temp Pulse Resp B/P (MAP) Pulse Ox O2 Delivery O2 Flow Rate FiO2 02/11/25 09:02 120 123/86 02/11/25 07:50 Nasal Cannula* 3 32 02/11/25 05:00 98.5 17 93 98.5 Intake/Output Intake and Output 02/11/25 07:00 Intake Total 1330 ml Output Total 300 ml Balance 1030 ml Intake Oral 1280 ml IV Total 50 ml Output Urine Total 300 ml # Voids 6 General Appearance: Alert, Oriented X3, Cooperative, No acute distress HEENT: Atraumatic, PERRLA, EOMI, Mucous membr. moist/pink Neck: Supple Lungs: Clear to auscultation, Normal air movement Cardiovascular: Regular rate, Normal S1, Normal S2, No murmurs, Gallops, Rubs Abdomen: Normal bowel sounds, Soft, No tenderness Neuro: Cranial nerves 3-12 NL Psych/Mental Status: Mental status NL Medications Current Medications Medications Dose Ordered Sig/Brielle Route Start Time Stop Time Status Last Admin Dose Admin Enoxaparin Sodium 40 mg DAILY SC 02/08/25 16:15 02/11/25 09:01 40 MG Furosemide 40 mg DAILY IV 02/08/25 16:15 02/11/25 09:02 40 MG Ceftriaxone Sodium 50 ml @ 100 mls/hr DAILY@09 IV 02/08/25 16:15 02/11/25 09:01 100 MLS/HR Acetaminophen/ Hydrocodone Bitart 1 tab Q4HP PRN PO 02/08/25 16:15 Ondansetron HCl 4 mg Q4HP PRN IV 02/08/25 16:15 Acetaminophen 650 mg Q6HP PRN PO 02/08/25 16:15 02/10/25 22:03 650 MG Nitroglycerin 0.4 mg Q5MINP PRN SL 02/08/25 16:15 Morphine Sulfate 2 mg Q30M PRN IV 02/08/25 16:15 Tamsulosin HCl 0.4 mg QPM PO 02/08/25 18:00 02/10/25 17:52 0.4 MG Metoprolol Succinate 25 mg DAILY PO 02/09/25 10:00 02/11/25 09:02 25 MG Atorvastatin Calcium 20 mg HS PO 02/08/25 22:00 02/10/25 22:03 20 MG Laboratory Results Laboratory Tests 02/09/25 06:26 Chemistry Test 02/10/25 15:10 Albumin 4.3 g/dL (3.2-4.8) Total Protein 7.7 g/dL (5.7-8.2) LFT Test 02/10/25 15:10 Alanine Aminotransferase (ALT) 14 U/L (7-40) Alkaline Phosphatase 92 U/L (46-116) Aspartate Amino Transferase (AST) 23 U/L (13-40) Direct Bilirubin 1.2 mg/dL (<0.3) H Total Bilirubin 2.7 mg/dL (0.2-1.0) H Urinalysis Test 02/08/25 07:37 Urine Color Yellow (Yellow) Urine Clarity Clear (Clear) Urine pH 5.5 (5.0-9.0) Urine Specific [place] 1.026 (1.001-1.035) Urine Protein Trace (Negative) H Urine Ketones Negative (Negative) Urine Blood 1+ /uL (Negative) H Urine Nitrite Negative (Negative) Urine Bilirubin Negative (Negative) Urine Urobilinogen Normal mg/dL (Negative) Urine Leukocyte Esterase Negative /uL (Negative) Urine RBC 1 /hpf (0 - 3) Urine Microscopic WBC < 1 /HPF (0-3) Urine Squamous Epithelial Cells Few /hpf (<5) Urine Bacteria None seen /hpf (None Seen) Urine Mucus Few (None Seen) Urine Glucose Normal mg/dL (Normal) Microbiology Microbiology Date/Time Source Procedure Growth Status 02/08/25 07:37 Voided Urine Urine Culture - Final Complete 02/08/25 03:51 Blood Blood Culture - Preliminary NO GROWTH AFTER 72 HOURS OF INCUBATION. Resulted Labs and/or images reviewed: Labs reviewed by me Assessment/Plan Assessment/Plan Chest pain Acute hypoxic respiratory failure on supplemental oxygen ? Acute systolic versus diastolic heart failure Bilateral lower extremity wounds Leukocytosis unclear etiology Hyperbilirubinemia History of hypertension History of diabetes History of dyslipidemia History of SVTs Plan Continue current management. Still have chest pain so I will consult cardiology t bili continue elevated. Will order MRCP Continue SSI Acue check Wound care Continue IV Rocephin Lasix IV This medical document was created using an electronic medical record system with [employer] direct computerized dictation system. Although this document has been carefully reviewed, there may still be some phonetic and typographical errors. These areas are purely typographical due to imperfections of the software programs, and do not reflect any compromise in the patient's medical care. Plan discussed with: Patient My Orders Orders - DESTINEY TORRES MD Procedure Category Date Status Time Pt Request For Service PT 02/10/25 Logged 14:05 Date of Service: Feb 11, 2025 Billing Provider: DESTINEY TORRES MD Common Visit Codes: [id number] INP/OBS CARE(HIGH) DESTINEY TORRES MD Feb 11, 2025 11:08
[2025-02-12 01:00] VITALS: BP 127/72; PULSE 100; RESP 18; TEMP 97.2; O2SAT 93
[2025-02-12 05:00] VITALS: BP 130/107; PULSE 95; RESP 19; TEMP 97.2; O2SAT 97
[2025-02-12 08:00] VITALS: PULSE 93; PULSE 94; RESP 18; O2SAT 92
[2025-02-12 09:00] VITALS: BP 127/89; PULSE 93; RESP 18; TEMP 98.2; O2SAT 90
--- NOTE | 2025-02-12 10:27 | DVHPN2 ---
Subjective The patient seen and examined at bedside. No complains Reviewed: Care Plan, H&P, Labs, Medications, Previous Orders, Radiology Cardiovascular: Chest Pain Objective Vitals Vital Signs Date Time Temp Pulse Resp B/P (MAP) Pulse Ox O2 Delivery O2 Flow Rate FiO2 02/12/25 09:00 98.2 93 18 127/89 (102) 90 98.2 02/11/25 20:00 Nasal Cannula* 3 32 Intake/Output Intake and Output 02/12/25 07:00 Intake Total 850 ml Output Total 950 ml Balance -100 ml Intake Oral 850 ml Output Urine Total 950 ml # Bowel Movements 1 General Appearance: Alert, Oriented X3, Cooperative, No acute distress HEENT: Atraumatic, PERRLA, EOMI, Mucous membr. moist/pink Neck: Supple Lungs: Clear to auscultation, Normal air movement Cardiovascular: Regular rate, Normal S1, Normal S2, No murmurs, Gallops, Rubs Abdomen: Normal bowel sounds, Soft, No tenderness Neuro: Cranial nerves 3-12 NL Psych/Mental Status: Mental status NL Medications Current Medications Medications Dose Ordered Sig/Brielle Route Start Time Stop Time Status Last Admin Dose Admin Enoxaparin Sodium 40 mg DAILY SC 02/08/25 16:15 02/11/25 09:01 40 MG Furosemide 40 mg DAILY IV 02/08/25 16:15 02/11/25 09:02 40 MG Ceftriaxone Sodium 50 ml @ 100 mls/hr DAILY@09 IV 02/08/25 16:15 02/11/25 09:01 100 MLS/HR Acetaminophen/ Hydrocodone Bitart 1 tab Q4HP PRN PO 02/08/25 16:15 Ondansetron HCl 4 mg Q4HP PRN IV 02/08/25 16:15 Acetaminophen 650 mg Q6HP PRN PO 02/08/25 16:15 02/10/25 22:03 650 MG Nitroglycerin 0.4 mg Q5MINP PRN SL 02/08/25 16:15 Morphine Sulfate 2 mg Q30M PRN IV 02/08/25 16:15 Tamsulosin HCl 0.4 mg QPM PO 02/08/25 18:00 02/11/25 17:46 0.4 MG Metoprolol Succinate 25 mg DAILY PO 02/09/25 10:00 02/11/25 09:02 25 MG Atorvastatin Calcium 20 mg HS PO 02/08/25 22:00 02/11/25 22:27 20 MG Laboratory Results Laboratory Tests 02/09/25 06:26 Urinalysis Test 02/08/25 07:37 Urine Color Yellow (Yellow) Urine Clarity Clear (Clear) Urine pH 5.5 (5.0-9.0) Urine Specific [place] 1.026 (1.001-1.035) Urine Protein Trace (Negative) H Urine Ketones Negative (Negative) Urine Blood 1+ /uL (Negative) H Urine Nitrite Negative (Negative) Urine Bilirubin Negative (Negative) Urine Urobilinogen Normal mg/dL (Negative) Urine Leukocyte Esterase Negative /uL (Negative) Urine RBC 1 /hpf (0 - 3) Urine Microscopic WBC < 1 /HPF (0-3) Urine Squamous Epithelial Cells Few /hpf (<5) Urine Bacteria None seen /hpf (None Seen) Urine Mucus Few (None Seen) Urine Glucose Normal mg/dL (Normal) Microbiology Microbiology Date/Time Source Procedure Growth Status 02/08/25 07:37 Voided Urine Urine Culture - Final Complete 02/08/25 03:51 Blood Blood Culture - Preliminary NO GROWTH AFTER 72 HOURS OF INCUBATION. Resulted Assessment/Plan Assessment/Plan Chest pain Acute hypoxic respiratory failure on supplemental oxygen ? Acute systolic versus diastolic heart failure Bilateral lower extremity wounds Leukocytosis unclear etiology Hyperbilirubinemia History of hypertension History of diabetes History of dyslipidemia History of SVTs Plan Continue current management. Still have chest pain so I will consult cardiology t bili continue elevated. Will order MRCP Continue SSI Acue check Wound care Continue IV Rocephin Lasix IV This medical document was created using an electronic medical record system with [employer] direct computerized dictation system. Although this document has been carefully reviewed, there may still be some phonetic and typographical errors. These areas are purely typographical due to imperfections of the software programs, and do not reflect any compromise in the patient's medical care. My Orders Orders - DESTINEY TORRES MD Procedure Category Date Status Time Mrcp Mri MRI 02/12/25 Transmitted 10: DESTINEY TORRES MD Feb 12, 2025 10:27
[2025-02-12] MEDS ORDERED: CEPH250C PO (12:09)
--- NOTE | 2025-02-12 12:36 | DVH ---
INDICATION: ABDOMINAL PAIN AND ELEVATION OF T-BILIRUBIN TECHNIQUE: Multiple real-time sonographic images of the abdomen were obtained. COMPARISON: None FINDINGS: Increased echogenicity to the hepatic parenchyma consistent with steatosis.. The liver abbe ures 19.2 cm. No intrahepatic biliary ductal dilatation is noted. The gallbladder wall measures 0.4 cm and is unremarkable. No gallstones is seen. Sludge in the gal lbladder. The common duct measures 0.64 cm and is unremarkable. No pericholecystic fluid is noted. N egative sonographic Corrales's sign The right kidney measures 11.8 cm. No hydronephrosis. The pancreas is not well visualized due to obscuration from bowel gas. IMPRESSION: 1. Hepatomegaly with the liver measuring 19.2 cm parenchymal changes consistent with steatosis. 2. Sludge in the gallbladder with mild thickening of the gallbladder wall and mild dilatation of the common bile duct. Negative sonographic Corrales's sign 3. Right kidney measures 11.8 cm with no hydronephrosis.
[2025-02-12 13:00] VITALS: BP 125/85; PULSE 92; RESP 18; TEMP 97.5; O2SAT 92
[2025-02-12 17:00] VITALS: BP 114/89; PULSE 94; RESP 18; TEMP 97.6; O2SAT 90
--- NOTE | 2025-02-13 10:19 | DVHDS2 ---
Discharge Summary Date of Admission Feb 08, 2025 at 16:15 Date of Discharge: Feb 12, 2025 Admitting Diagnosis Chest pain Acute hypoxic respiratory failure on supplemental oxygen ? Acute systolic versus diastolic heart failure Bilateral lower extremity wounds Leukocytosis unclear etiology Hyperbilirubinemia History of hypertension History of diabetes History of dyslipidemia History of SVTs Labs/Diagnostic Data: Laboratory Results Test 02/10/25 15:10 02/09/25 06:26 02/08/25 07:37 02/08/25 07:26 Total Bilirubin 2.7 mg/dL (0.2-1.0) Direct Bilirubin 1.2 mg/dL (<0.3) Aspartate Amino Transferase (AST) 23 U/L (13-40) Alanine Aminotransferase (ALT) 14 U/L (7-40) Alkaline Phosphatase 92 U/L (46-116) Total Protein 7.7 g/dL (5.7-8.2) Albumin 4.3 g/dL (3.2-4.8) White Blood Count 15.0 10^3/uL (4.4-10.8) Red Blood Count 5.29 10^6/uL (4.5-5.90) Hemoglobin 16.4 g/dL (13.5-17.5) Hematocrit 48.7 % (41.0-53.0) Mean Corpuscular Volume 92.0 fL (80.0-100.0) Mean Corpuscular Hemoglobin 31.0 pg (28.0-32.0) Mean Corpuscular Hemoglobin Concent 33.8 g/dL (32.0-36.0) Red Cell Distribution Width 15.8 % (11.8-14.3) Platelet Count 189 10^3/uL (140-450) Mean Platelet Volume 9.4 fL (6.9-10.8) Neutrophils (%) (Auto) 86.4 % (37.0-80.0) Lymphocytes (%) (Auto) 5.4 % (10.0-50.0) Monocytes (%) (Auto) 8.1 % (0.0-12.0) Eosinophils (%) (Auto) 0.0 % (0.0-7.0) Basophils (%) (Auto) 0.1 % (0.0-2.0) Neutrophils # (Auto) 13.0 10 ^3/uL (1.6-8.6) Lymphocytes # (Auto) 0.8 10 ^3/uL (0.4-5.4) Monocytes # (Auto) 1.2 10 ^3/uL (0-1.3) Eosinophils # (Auto) 0 10 ^3/uL (0-0.8) Basophils # (Auto) 0 10 ^3/uL (0-0.2) Nucleated Red Blood Cells 0.1 % Sodium Level 136 mmol/L (136-145) Potassium Level 3.5 mmol/L (3.5-5.1) Chloride Level 100 mmol/L (98-107) Carbon Dioxide Level 22 mmol/L (20-31) Anion Gap 14 (5-15) Blood Urea Nitrogen 18 mg/dL (9-23) Creatinine 0.97 mg/dL (0.700-1.30) Glomerular Filtration Rate Calc 81 mL/min (>90) BUN/Creatinine Ratio 18.6 (10.0-20.0) Serum Glucose 140 mg/dL (74-106) Calcium Level 9.5 mg/dL (8.7-10.4) Urine Color Yellow (Yellow) Urine Clarity Clear (Clear) Urine pH 5.5 (5.0-9.0) Urine Specific [place] 1.026 (1.001-1.035) Urine Protein Trace (Negative) Urine Ketones Negative (Negative) Urine Blood 1+ /uL (Negative) Urine Nitrite Negative (Negative) Urine Bilirubin Negative (Negative) Urine Urobilinogen Normal mg/dL (Negative) Urine Leukocyte Esterase Negative /uL (Negative) Urine RBC 1 /hpf (0 - 3) Urine Microscopic WBC < 1 /HPF (0-3) Urine Squamous Epithelial Cells Few /hpf (<5) Urine Bacteria None seen /hpf (None Seen) Urine Mucus Few (None Seen) Urine Glucose Normal mg/dL (Normal) Urine Opiates Screen Neg (NEGATIVE) Urine Fentanyl Screen Neg (NEGATIVE) Urine Barbiturates Screen Neg (NEGATIVE) Urine Phencyclidine Screen Neg (NEGATIVE) Urine Amphetamines Screen Neg (NEGATIVE) Urine Benzodiazepines Screen Neg (NEGATIVE) Urine Cocaine Screen Neg (NEGATIVE) Urine Cannabinoids Screen Neg (NEGATIVE) Troponin I High Sensitivity 16 ng/L (</=54) Test 02/08/25 03:44 02/08/25 03:21 Lactic Acid Level 2.0 mmol/L (0.4-2.0) Erythrocyte Sedimentation Rate 14 mm/hr (0-20) Magnesium Level 1.8 mg/dL (1.6-2.6) C-Reactive Protein High Sensitivity 0.46 mg/dL (<1.0) B-Type Natriuretic Peptide 385.93 pg/mL (0-100) Triglycerides Level 64 mg/dL (< 150) Cholesterol Level 112 mg/dL (< 200) LDL Cholesterol 69 mg/dL (< 100) HDL Cholesterol 37 mg/dL (40-59) Thyroid Stimulating Hormone (TSH) 2.78 uIU/mL (0.55-4.78) Free Thyroxine (T4) Calculated 1.17 ng/dL (0.89-1.76) Other Laboratory Tests 02/09/25 06:26 Brief Hx & Hospital Course: This is a 74 years old male with past medical history of hypertension, diabetes, dyslipidemia, SVT come to emergency department because of chest pain. Chest pain is 9/10 and intermittent nature. The patient also complained of bilateral lower extremity edema with leg wound a nonhealing and cellulitis. The patient was admitted. The patient was treated for congestive heart failure exacerbation. The patient was given Lasix 40 mg IV b.i.d.. The patient also was put on Rocephin 1 g IV q.day for his bilateral lower extremity cellulitis and infection. He also had an ultrasound left lower extremity to rule out DVT in his was negative. The patient also complained of abdominal pain in he has elevation of T bilirubin . Subsequently the patient him ultrasound quadrant abdomen done which showed:Hepatomegaly with the liver measuring 19.2 cm parenchymal changes consistent with steatosis. Sludge in the gallbladder with mild thickening of the gallbladder wall and mild dilatation of the common bile duct. Negative sonographic Corrales's sign. Right kidney measures 11.8 cm with no hydronephrosis. The patient wanted me to consulted a specific vascular surgeon who he request Dr. Donato . However I explained to the patient that the doctor is not come to this hospital. He needs to follow up as outpatient. Today the patient has shortness for breath improved. The wound improved. The edema and cellulitis improved. I am going to discharge him home. Advised him to follow up with primary care physician 1-2 weeks. Follow up with vascular surgeon as outpatient. Activity as tolerated. Diet low-salt low-cholesterol diet. Physical exam: HEENT: Normocephalic atraumatic pupils equal react to light and accommodation. Extraocular muscles intact, conjunctiva pink, oropharynx moist, no thrush, no exudate. Lymphatic: No lymphadenopathy Cardiovascular exam: S1, S2 was heard. No murmurs, rubs, gallops Lung: Clear on auscultation bilaterally, no wheeze, rale, rhonchi. GI: Abdominal soft, nondistended, nontenderness, positive bowel sounds. Extremity: No crepitus, cyanosis, plus one edema. Pedal pulses present bilateral. Full range of motion. Skin: Normal turgor, no rash. Psych: Alert, oriented x3. Neurology: No focal deficits, cranial nerve II to XII grossly intact. This medical document was created using an electronic medical record system with [employer] direct [employer] dictation system. Although this document has been carefully reviewed, there may still be some phonetic and typographical errors. These areas are purely typographical due to imperfections of the software programs, and do not reflect any compromise in the patient's medical care. Condition at Discharge: Stable Final Diagnosis/Problems List Chest pain Acute hypoxic respiratory failure on supplemental oxygen ? Acute systolic versus diastolic heart failure Bilateral lower extremity wounds Bilateral lower extremity cellulitis Leukocytosis unclear etiology Hyperbilirubinemia History of hypertension History of diabetes History of dyslipidemia History of SVTs Fatty liver Elevation of T bilirubin Discharge Disposition: Home Discharge Instruct/Medications Diet: Cardiac 2g Na,low cholest Activity: No Restrictions, As Tolerated Follow Up/Referral: pcp 1-2 weeks Medications: see med list Scheduled Cephalexin (Keflex Capsule), 2 CAP PO BID Furosemide (Furosemide), 1 TAB PO DAILY, (Reported) Metoprolol Succinate (Metoprolol Succinate Er), 1 TAB PO DAILY, (Reported) Potassium Chloride (Potassium Chloride ER), 1 TAB PO DAILY, (Reported) Simvastatin (Simvastatin), 1 TAB PO DAILY, (Reported) Tamsulosin Hcl (Tamsulosin Hcl), 1 CAP PO DAILY, (Reported) Discharge Statement: "Patient was advised to return to the ER or call 911 if any headaches, dizziness, shortness of breath, chest pain, abdominal pain, bleeding, fevers, or worsening of medical condition. Patient was counseled about treatment plan, medications, possible side effects, patientverbalized understanding. All questions were answered to the best of my ability. This discharge took greater then 30 minutes in planning, reviewing documentation, counseling the patient, and discussing with other team members." ASSESSMENT ASSESSMENT Assessment cellulitis Date of Service: Feb 12, 2025 Billing Provider: DESTINEY TORRES MD Common Visit Codes: [id number] DISCH DAY >30min DESTINEY TORRES MD Feb 13, 2025 10:19
--- NOTE | 2025-02-14 09:06 | ECG ---
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
== END 2025-02-12 20:00 | disposition home or self-care (01) | DRG 871 ==
LOC: ER 02:39 → OVERFLOW 16:15 → TELE-EAST 18:23
PROVIDERS: ADMIT Internal Medicine; ATTEND Internal Medicine
DX: A41.9 Sepsis, unspecified organism (principal); I50.41 Acute combined systolic (congestive) and diastolic (congestive) heart failure; J96.01 Acute respiratory failure with hypoxia; L03.116 Cellulitis of left lower limb; L03.115 Cellulitis of right lower limb; I11.0 Hypertensive heart disease with heart failure; E11.9 Type 2 diabetes mellitus without complications; E78.5 Hyperlipidemia, unspecified; K76.0 Fatty (change of) liver, not elsewhere classified; K83.8 Other specified diseases of biliary tract; S81.802A Unspecified open wound, left lower leg, initial encounter; S81.801A Unspecified open wound, right lower leg, initial encounter; Z79.899 Other long term (current) drug therapy; X58.XXXA Exposure to other specified factors, initial encounter; Y93.89 Activity, other specified; Y92.89 Other specified places as the place of occurrence of the external cause; Y99.8 Other external cause status
CPT/HCPCS: 36415; 71045; 76705; 80053; 80061; 80076; 80307; 81001; 83605; 83735; 83880; 84439; 84443; 84484; 85025; 85652; 86141; 87040; 87086; 93005; 93970; 96374; 97110; 97116; 97163; 99291; G0378; J2543; J3490